=== PATIENT | female | born 1980 | race Caucasian/White ===

== ENCOUNTER 2017-07-11 06:17 | Emergency (ER) | payer SELFPAY ==
[2017-07-11 06:18] VITALS: BP 147/99; PULSE 86; RESP 20; TEMP 36.6; O2SAT 98; BMI 36.6
[2017-07-11 06:22] VITALS: O2SAT 97
--- NOTE | 2017-07-11 06:31 | RAD_ITS ---
STUDY: X-RAY CHEST REASON FOR EXAM: Female, 37 years old. Cough TECHNIQUE: Frontal and lateral views of the chest. COMPARISON: None. FINDINGS: The lungs are clear and expanded. There is no demonstrated pleural abnormality. Normal size heart. Normal mediastinum and joel. Normal visualized pulmonary arteries. Normal visualized aortic arch and descending thoracic aorta. Normal visualized thoracic spine. Normal visualized ribs, clavicles, and shoulders. There is no demonstrated abnormality of the visualized soft tissue structures of the upper abdomen. RAD/Chest PA and Lateral IMPRESSION: Normal x-ray examination of the chest. Electronically Signed: Valentina Sosa MD at 6:54 EST Tel , Service support ,
--- NOTE | 2017-07-11 06:32 | ED.VISSUMM ---
- ER Visit Summary Date of Service: 07/11/17 Chief Complaint: Cough History of Present Illness: The patient is a 37 F with cough occasionally productive of green/yellow sputum for about 1 week, has had hot/cold chills off and on, but not daily, coughing so hard that this morning she had one bout of posttussive emesis but otherwise no GI symptoms, ears have been sore, and she has been wheezing. She has a history of asthma. States she has had pneumonia in the past as well. Feels like she is not getting better. Has an inhaler that is and does not feel like it is working for her at home. Otherwise, her past medical history includes Crohn's but she is controlled with her diet and states that it is stable at this time without medications. Physical Examination: Afebrile, vital signs are normal with pulse ox 98% on room air. She is in no acute distress. Lungs are wheezy throughout all allen, she is conversive in full sentences. Heart is regular without tachycardia or murmur. Abdomen benign. No pedal edema or calf tenderness. TMs and EACs are normal bilaterally. Neck is supple with no lymphadenopathy. Test Results: Chest x-ray unremarkable. No pneumonia. Emergency Department Course and Treatment: Patient opted for Kenalog versus 1 week of prednisone, so she was given 40 mg IM, in addition to several nebulizer treatments and an injection of Toradol. She felt much improved on reevaluation. No antibiotics indicated at this time for what is likely a viral illness, I do not feel that we need to test for influenza since she would likely already be better by now, and she is certainly out of the window and not a candidate for antiviral treatment. Advised to follow-up with her doctor if she is not improving after another 5-7 days and she is comfortable with that plan. Treatment Plan: Prescribed albuterol MDI and Tesrenettaon Martín Disposition: Discharge home Impression: Acute asthmatic bronchitis This note was generated with [employer] dictation software. It may contain incorrect words, spelling, and punctuation that were not noted in review of the chart prior to signing ED Disposition - Plan for ED Patient: Disposition: Home or Assisted Living Chief Complaint: Cough Instructions: ED Bronchitis Asthmatic Prescriptions: Albuterol Inhaler [Ventolin Hfa] 1 - 2 puff INHALATION Q4H PRN PRN #1 inhaler PRN Reason: Wheezing Benzonatate [Tessalon Perle] 200 mg PO TID PRN PRN #20 cap PRN Reason: Cough Referrals: Adrianne Longoria [NON-STAFF] - 1 Week if not improving
[2017-07-11 06:45] VITALS: PULSE 84; RESP 18
[2017-07-11] MEDS: Ipratropium/Albuterol Sulfate 3 ML AMPUL.NEB INHALATION (06:45)
[2017-07-11] MEDS: Albuterol 2.5 MG/3 ML VIAL.NEB. INHALATION (06:45)
[2017-07-11] MEDS: Ketorolac 60 MG/2 ML Vial IM (06:52)
[2017-07-11] MEDS: Triamcinolone Acetonide 40 MG/ML Vial IM (06:54)
[2017-07-11 07:07] VITALS: BP 145/85; PULSE 87; RESP 17; O2SAT 98
== END 2017-07-11 07:08 | disposition home or self-care (01) ==
PROVIDERS: Emergency Provider Emergency Medicine
DX: J45.901 Unspecified asthma with (acute) exacerbation (principal); E66.9 Obesity, unspecified; Z72.0 Tobacco use
CPT/HCPCS: 71046; 94640; 96372; 99282

== ENCOUNTER 2022-05-05 09:58 | Emergency (ER) | payer SELFPAY ==
[2022-05-05 09:59] VITALS: BP 177/111; PULSE 88; RESP 16; TEMP 36.6; O2SAT 99; BMI 30.7
--- NOTE | 2022-05-05 11:38 | CT_ITS ---
EXAM: CT HEAD WITHOUT INTRAVENOUS CONTRAST CLINICAL INDICATION: Headache TECHNIQUE: Multiple axial images were obtained of the head without intravenous contrast. This CT exam was performed using one or more of the following dose reduction techniques: automated exposure control, adjustment of the mA and/or kV according to patient size, and/or use of iterative reconstruction technique. This report was created using [employer] report [employer] technology. COMPARISON: None. FINDINGS: BRAIN AND EXTRA-AXIAL SPACES: Normal. No intra- or extra-axial hemorrhage. No evidence of acute infarct. No intracranial mass or mass effect. There is preservation of the swanson/white matter interface. Posterior fossa structures are unremarkable. Ventricles are appropriate for age. No hydrocephalus. Basal cisterns are patent. BONES/JOINTS: Normal. No discrete lytic or blastic abnormalities. SINUSES: Unremarkable as visualized. No acute sinusitis. MASTOID AIR CELLS: Normal. Clear. ORBITS: Visualized globes, extraocular muscles, optic nerves and retrobulbar fat appear unremarkable. CT/Brain/Head without Contrast IMPRESSION: Normal CT brain without intravenous contrast. Electronically Signed: Herbert Morrison MD at 12:56 EST ,
--- NOTE | 2022-05-05 11:39 | EX.ED.DYSGE1 ---
HPI History of Present Illness Chief Complaint: General Illness Narrative Narrative: 42-year-old female presenting with headache for a week. She states that at first she had low-grade fevers and congestion and this is resolved for the most part but she sounds a worsening headache. She denies any trauma. She not on any blood thinners. No history of migraines. She does not describe an acute onset headache. She is mildly lightheaded. She has photophobia and phonophobia. PFSH PFS Medical History GERD (gastroesophageal reflux disease) Home Medications omeprazole 20 mg capsule,delayed release 20 mg PO DAILY 05/05/22 [History Last Taken Unknown] Allergy/AdvReac Type Severity Reaction Status Date / Time Penicillins [PCN] Allergy Other Verified 05/05/22 10:01 Sulfa (Sulfonamide Allergy Other Verified 05/05/22 10:01 Antibiotics) azithromycin [From Zithromax] AdvReac Other Verified 05/05/22 10:01 cephalexin monohydrate AdvReac Other Verified 05/05/22 10:01 [From Keflex] codeine AdvReac Other Verified 05/05/22 10:01 Social History Smoking Status: Current every day smoker tobacco type: cigarettes ROS ROS ED Constitutional Constitutional ED: Reports chills and fever(s) Eyes Eyes: Denies change in vision or diplopia ENT ENT ED: Denies rhinorrhea or sore throat Cardiovascular Cardiovascular: Denies chest pain Respiratory/Chest Respiratory/Chest: Denies cough or dyspnea Gastrointestinal Gastrointestinal: Denies abdominal pain Genitourinary Genitourinary ED: Denies dysuria or hematuria Musculoskeletal Musculoskeletal: Denies arthralgias or back pain Neurologic Neurologic: Reports headache(s); Denies paresthesias Psychiatric Psychiatric: Denies anxiety or depression EXAM Physical Exam Const Vital Signs: 05/05/22 09:59 Temperature 97.9 F Temperature Source Temporal Pulse Rate 88 Respiratory Rate 16 Blood Pressure 177/111 H Blood Pressure Mean 133 Pulse Ox 99 Oxygen Delivery Method Room Air Positive well nourished General Appearance ED: NAD; Negative for pallor HEENT Reports moist mucous membranes Eyes PERRL and EOMs intact bilaterally Neck no lymphadenopathy Chest Wall inspection of chest normal and palpation of chest normal Resp normal respiratory effort and clear to auscultation bilaterally Cardio regular rate and regular rhythm GI normal to inspection, nondistended, normoactive bowel sounds Extremity normal to inspection Neuro oriented x3 and CN's II-XII intact bilaterally Sensorium / Orientation: alert Psych mental status grossly normal Mood & Affect: Negative for depressed or anxious Skin no rashes or lesions noted and no wounds General Skin Exam: Negative for jaundice or pallor MDM MDM MDM Narrative Medical decision making narrative: Patient with headache for a week. She has no meningeal signs. She does not describe an acute onset headache. Initially started with viral symptoms. Her congestion has resolved however she still planes of headache. Patient treated with Reglan, Benadryl. CT of the brain was negative. Patient reevaluated states her headache is now 1 or 2 on the pain scale. She is given a dose of Toradol. She feels well enough to go home at this point. She is discharged home in stable condition. Impression: 1. Headache 2. Photophobia Lab Data Attestation: I reviewed the patient's lab results. Radiography Diagnostic Testing: Clinical Impression(s) from Imaging Studies Brain CT 05/05/22 11:38 IMPRESSION: Normal CT brain without intravenous contrast. Electronically Signed: Herbert Morrison MD at 12:56 EST , Discharge Plan Triage Chief Complaint: General Illness ED Provider: Jalen Apodaca Dx/Rx/DC Orders Prescriptions: No Action omeprazole [Prilosec] 20 mg Capsule,Delayed Release(Dr/Ec) 20 mg PO DAILY Primary Care Provider: Care Physician,No Primary Referrals: Care Physician,No Primary [Primary Care Provider] -
[2022-05-05] MEDS: 0.9% Normal Saline 1,000 ML 999 ML IV (12:10)
[2022-05-05] MEDS: DiphenhydrAMINE 50 MG/ML Syringe 25 MG IV (12:10)
[2022-05-05] MEDS: Metoclopramide 10 MG/2 ML Vial IV (12:10)
--- NOTE | 2022-05-05 13:36 | CM.ED ---
Social Work Consult: No primary care physician/no insurance Referral source: Self referral Met with patient and patient spouse, Sang in room. Introduced self and social scientist role. Patient agreeable to speak with this social scientist and provided verbal permission for this social scientist to speak openly with Sang present. This social scientist broached topic of medical insurance coverage for patient. Patient reports to not qualify for Medicaid due to income being to high. Patient reports to not have any insurance through employer. This social scientist inquired about community needs for patient. Patient reports to have housing, transportation, and food in the home. This social scientist inquired if patient is aware of [facility] in [place]. Patient reports to be aware of the free clinic. This social scientist encouraged patient to inquire about getting established with the [facility] for medical care as patient reports to have difficulty paying medical bills. Patient states I need to go get set up in regards to the [facility]. Patient declines further information about the free clinic, I already am aware of where it is. Patient declines any other community resources and reports to have needed supports in the community. No further services requested or indicated. Loan DEMPSEY, [place]
[2022-05-05] MEDS: Ketorolac 15 MG/ML Vial IV (13:56)
[2022-05-05 14:00] VITALS: BP 118/78; PULSE 78; RESP 16; TEMP 36.6; O2SAT 100
== END 2022-05-05 14:06 | disposition home or self-care (01) ==
PROVIDERS: Emergency Provider Student in an Organized Health Care Education/Training Program; Visit Provider Student in an Organized Health Care Education/Training Program
DX: R51.9 Headache, unspecified (principal); F17.210 Nicotine dependence, cigarettes, uncomplicated; H53.149 Visual discomfort, unspecified
CPT/HCPCS: 70450; 96361; 96374; 96375; 99283; J7030; A4216

== ENCOUNTER 2023-05-04 07:48 | Emergency (ER) | payer MEDICAID, SELFPAY ==
[2023-05-04 07:49] VITALS: BP 176/102; PULSE 90; RESP 18; TEMP 37.2; O2SAT 99; BMI 31.4
--- NOTE | 2023-05-04 08:10 | ED.VIS.DENTA ---
HPI History of Present Illness Chief Complaint: Dental Informant: patient Onset/Context/Timing Onset: Weeks (1) Context: Gradual Onset Timing: Continuous Quality: Aching Location: Right lower molar area Worsened by: Opening her jaw and eating Relieved by: - (Nothing) Associated Symptoms Assocated Symptom - Dental: Negative for fever, jaw swelling, face swelling, cold sensitivity or hot sensitivity Narrative Narrative: Patient presents with right lower dental pain that has been getting progressively worse over the past week. Patient states she has had oral surgeries in the past and since that time, she gets occasional abscesses in her jaw. Patient states this feels like she is developing another abscess in her jaw. Patient describes her pain as aching. Patient states it is worse when she opens her jaw and when she eats. Patient states nothing seems to help her pain. Patient denies any fevers or chills. Patient denies any jaw or facial swelling. Patient denies any hot or cold sensitivity. [facility] Medical History (Updated 05/04/23 @ 08:[address] Mervin Son DO) GERD (gastroesophageal reflux disease) Home Medications omeprazole 20 mg capsule,delayed release 20 mg PO DAILY 05/05/22 [History Last Taken Unknown] clindamycin HCl 300 mg capsule (Cleocin HCl) 300 mg PO Q6H #40 CAPSULES 05/04/23 [Rx Last Taken Unknown] Allergy/AdvReac Type Severity Reaction Status Date / Time Penicillins [PCN] Allergy Other Verified 05/04/23 07:49 Sulfa (Sulfonamide Allergy Other Verified 05/04/23 07:49 Antibiotics) azithromycin [From Zithromax] AdvReac Other Verified 05/04/23 07:49 cephalexin monohydrate AdvReac Other Verified 05/04/23 07:49 [From Keflex] codeine AdvReac Other Verified 05/04/23 07:49 Surgical History (Updated 05/04/23 @ 08:[address] Mervin Son DO) H/O: hysterectomy Hx of section Hx of oral surgery Social History Smoking Status: Current every day smoker tobacco type: cigarettes ROS ROS ED Constitutional Constitutional ED: Denies chills or fever(s) Eyes Eyes: Denies blurry vision or change in vision ENT ENT ED: Reports ear pain right; Denies rhinorrhea or sore throat Cardiovascular Cardiovascular: Denies chest pain or palpitations Respiratory/Chest Respiratory/Chest: Denies cough or dyspnea Gastrointestinal Gastrointestinal: Reports nausea; Denies vomiting Genitourinary Genitourinary ED: Denies dysuria or hematuria Musculoskeletal Musculoskeletal: Reports back pain and neck pain Integumentary Denies abscess or rash Neurologic Neurologic: Reports headache(s); Denies weakness Allergic/Immunologic Allergic/Immunologic ED: Denies mouth swelling or urticaria EXAM Physical Exam Const Vital Signs: 05/04/23 07:49 Temperature 99 F Temperature Source Temporal Pulse Rate 90 Respiratory Rate 18 Blood Pressure 176/102 H Blood Pressure Mean 126 Pulse Ox 99 Oxygen Delivery Method Room Air Positive well nourished and well developed General Appearance ED: well developed and NAD HEENT HEENT Narrative: Oral mucosa is pink and moist. Oropharynx is clear. Airway is patent. There is no trismus noted. The bilateral lower premolars and molars have been extracted previously. There is some mild gingival edema of the right lower premolar molar area. There is no fluctuance. There is no discharge or drainage noted. Neck is supple. Trachea is midline. There is no JVD. There is some mild submandibular lymphadenopathy. Throat: posterior oropharynx normal Neck Neck Narrative: There is some mild right submandibular lymphadenopathy that is tender to palpation. General: tenderness; Negative for anterior neck swelling or submandibular swelling Neuro oriented x3, CN's II-XII intact bilaterally, moves all extremities, no focal motor deficits and no sensory deficits noted Sensorium / Orientation: alert Motor Exam: strength 5/5 throughout Psych mental status grossly normal MDM MDM MDM Narrative Medical decision making narrative: Smoking cessation was discussed. Patient was advised that there may be an infection in her right lower jaw. There is no definite abscess. There is no indication for incision and drainage. Patient was given a dose of clindamycin here. Patient was given a prescription for clindamycin. Patient was instructed to follow-up with her dentist in 5 to 7 days. Patient was also instructed to follow-up with her primary care physician in 5 to 7 days. Patient understood and was agreeable with plan. All questions were answered. Discharge Plan Triage Chief Complaint: Dental ED Provider: Mervin Son Dx/Rx/DC Orders Clinical Impression: Odontalgia Instructions: ED Dental Pain Prescriptions: New clindamycin HCl [Cleocin HCl] 300 mg capsule 300 mg PO Q6H Qty: 40 0RF No Action omeprazole [Prilosec] 20 mg Capsule,Delayed Release(Dr/Ec) 20 mg PO DAILY Primary Care Provider: Care Physician,No Primary Referrals: Leyla Barry MD [Med Staff - [employer]] - 5-7 Days Care Physician,No Primary [Primary Care Provider] - Dentist,Your [STAFF PHYSICIAN] - 5-7 Days Disposition Disposition: Home, Self Care Discharge Date/Time: 05/04/23 08:32
[2023-05-04] MEDS: Clindamycin HCl 150 MG Capsule 300 MG PO (08:28)
== END 2023-05-04 08:32 | disposition home or self-care (01) ==
LOC: ED 08:21
PROVIDERS: Emergency Provider Emergency Medicine; Visit Provider Emergency Medicine
DX: K08.89 Other specified disorders of teeth and supporting structures (principal); F17.210 Nicotine dependence, cigarettes, uncomplicated; R51.9 Headache, unspecified
CPT/HCPCS: 99283

== ENCOUNTER 2023-06-06 10:04 | Emergency (ER) | payer MEDICAID, SELFPAY ==
[2023-06-06 10:06] VITALS: BP 162/87; PULSE 89; RESP 14; TEMP 37.2; O2SAT 98; BMI 31.4
--- NOTE | 2023-06-06 10:30 | EX.ED.VIS.UR ---
HPI HPI - URI History of Present Illness Chief Complaint: Sore Throat Informant: patient Onset/Context/Timing Onset: Days Timing: Continuous Current Severity: Mild Maximum Severity: Mild Associated Symptoms Associated Symptoms: Positive for Nasal Congestion, Myalgias and Nonproductive cough Narrative Narrative: 43-year-old female history of Crohn's disease. States she has had cough nasal congestion for about a week. Never was tested for anything. Over the last several days developed a sore throat. Able to swallow. She has chronic diarrhea from Crohn's she denies any fever or vomiting. She is able to take in p.o. fluids. Prior similar symptoms: Yes Recent Illness/Hospitalization: No ROS ROS ED ROS Narrative Cough. Sore throat. Nasal congestion. Chronic diarrhea from Crohn's. Review of Systems ROS Unobtainable: Denies due to encephalopathy Constitutional Constitutional ED: Denies chills or fever(s) Eyes Eyes: Denies blurry vision ENT ENT ED: Reports sore throat; Denies ear pain Cardiovascular Cardiovascular: Denies chest pain or palpitations Respiratory/Chest Respiratory/Chest: Reports cough; Denies dyspnea or sputum Gastrointestinal Gastrointestinal: Reports diarrhea; Denies abdominal pain, nausea or vomiting Genitourinary Genitourinary ED: Denies dysuria or hematuria Musculoskeletal Musculoskeletal: Denies arthralgias or back pain Integumentary Denies abscess or Abrasions Neurologic Neurologic: Denies headache(s) Psychiatric Psychiatric: Denies anxiety Endocrine Endocrinology: Denies cold intolerance Hematologic/Lymphatic Hematologic/Lymphatic: Denies easy bleeding, easy bruising or lymphadenopathy Allergic/Immunologic Allergic/Immunologic ED: Denies mouth swelling, tongue swelling or urticaria PFSH [facility] Medical History GERD (gastroesophageal reflux disease) Home Medications omeprazole 20 mg capsule,delayed release 20 mg PO DAILY 05/05/22 [History Last Taken Unknown] clindamycin HCl 300 mg capsule (Cleocin HCl) 300 mg PO Q6H #40 CAPSULES 05/04/23 [Rx Last Taken Unknown] azithromycin 250 mg tablet (Zithromax Z-Zeferino) 250 mg PO DAILY 4 days #4 tabs 06/06/23 [Rx Last Taken Unknown] Allergy/AdvReac Type Severity Reaction Status Date / Time Penicillins [PCN] Allergy Other Verified 06/06/23 10:22 Sulfa (Sulfonamide Allergy Other Verified 06/06/23 10:22 Antibiotics) azithromycin [From Zithromax] AdvReac Other Verified 06/06/23 10:22 cephalexin monohydrate AdvReac Other Verified 06/06/23 10:22 [From Keflex] codeine AdvReac Other Verified 06/06/23 10:22 Surgical History H/O: hysterectomy Hx of section Hx of oral surgery Social History Smoking Status: Current every day smoker tobacco type: cigarettes EXAM Physical Exam Narrative Exam Narrative: 3-year-old female no acute distress. Vital signs stable afebrile. Pulse ox 90% on room air no signs hypoxia. H EENT exam both TMs are slightly red. Posterior pharynx erythematous no exudate. No trouble swallowing or breathing. No stridor or drooling. No peritonsillar abscess. Tonsils are not significantly enlarged or touching. Moist mucous members. Neck anterior lymphadenopathy. No posterior lymphadenopathy. No meningismus. Trachea midline. Lungs clear to auscultation bilaterally. Dry cough. Heart regular rhythm no murmur rate about 90. Chest wall and ribs nontender. Abdomen soft nontender. Back nontender. Moving all 4 extremities. Nontender no edema. Neurologically she is awake and alert no focal motor deficits. Const Vital Signs: 06/06/23 10:06 Temperature 99 F Temperature Source Temporal Pulse Rate 89 Respiratory Rate 14 Blood Pressure 162/87 H Blood Pressure Mean 112 Pulse Ox 98 Oxygen Delivery Method Room Air Positive well nourished and well developed; Negative for obese, cachectic or contractures General Appearance ED: well developed and NAD; Negative for cachectic, contractures, cyanotic, diaphoretic or pallor Nutritional Appearance: Negative for cachectic or obese HEENT Reports moist mucous membranes; Denies dry mucous membranes normocephalic and atraumatic; Negative for scalp tenderness Face and Sinus: Negative for sinus tenderness Mouth ED: No dry mucous membranes Mouth: No dry mucous membranes Teeth and Gingiva: Negative for caries Throat: posterior oropharynx abnormal Positive for erythema; Negative for exudates, laceration, foreign body or other; Negative for posterior oropharynx normal Eyes PERRL and EOMs intact bilaterally General Eye ED: Negative for pale conjunctiva or scleral icterus Neck No no lymphadenopathy, supple, no meningeal signs and no JVD General: lymphadenopathy Resp normal respiratory effort and clear to auscultation bilaterally Effort and Inspection: Negative for retractions Auscultation: Negative for rales, rhonchi or wheezes Cardio S1 normal heart sound, S2 normal heart sound and no murmurs Rate: regular rate Rhythm: regular rhythm GI non-tender, non-distended and no masses Inspection: Negative for abdominal distention Auscultation: normoactive bowel sounds Palpation: soft; Negative for tender or guarding Back/Spine no CVA tenderness and normal ROM General Back: Negative for CVA tenderness Cervical Spine: Negative for cervical spine tenderness Thoracic Spine / Upper Back: Negative for thoracic spinal tenderness Lumbar Spine / Lower Back: Negative for lumbar spinal tenderness Sacrum: Negative for tenderness Extremity normal to inspection and full ROM General Extremety ED: Negative for cyanosis, tenderness or other findings General Extremity: Negative for cyanosis or other findings Neuro oriented x3 and CN's II-XII intact bilaterally Sensorium / Orientation: alert, oriented to person, oriented to place and oriented to time; Negative for orientation impaired, lethargic, stuporous or other Motor Exam: strength 5/5 throughout Psych mental status grossly normal Appearance: Negative for other Attitude: No agitated Mood & Affect: Negative for depressed, anxious or tearful Skin General Skin Exam: Negative for jaundice or pallor Lesions: no lesions Rashes: no rashes Trauma: Negative for abrasion or laceration MDM MDM MDM Narrative Medical decision making narrative: 43-year-old female with URI symptoms and sore throat. Rapid strep and COVID and flu will be obtained. She does not need a chest x-ray. She is not dehydrated. She does not need blood work or IV fluids. Patient has cervical lymphadenopathy but no axillary or inguinal lymphadenopathy. Exam no change when I reevaluated her throat there is a small amount of exudate on the right tonsil. With the lymphadenopathy and that I would treat this. I will treat the patient with Zithromax Z-ZEFERINO first dose given here and then to 50 a day for days 2 through 5. For possible strep throat. Versus viral syndrome. Warm salt water gargling. Tylenol Motrin. Rest. Follow-up if not improving. Patient is comfortable with the plan. History & Record Review Discussion w/independent historian: Patient Additional record(s) reviewed:: Prior inpatient record, Prior outpatient record, Prior ED visit and Prior labs Lab Data Attestation: I reviewed the patient's lab results. Lab results narrative: COVID, flu, RSV negative. Rapid strep negative. Discharge Plan Triage Chief Complaint: Sore Throat ED Provider: Arslan Avitia Dx/Rx/DC Orders Clinical Impression: Acute tonsillitis Instructions: ED Pharyngitis, Report Pending Prescriptions: New azithromycin [Zithromax Z-Zeferino] 250 mg tablet 250 mg PO DAILY 4 Days Qty: 4 0RF Rx Instructions: start on day 2 of therapy No Action omeprazole [Prilosec] 20 mg Capsule,Delayed Release(Dr/Ec) 20 mg PO DAILY clindamycin HCl [Cleocin HCl] 300 mg capsule 300 mg PO Q6H Qty: 40 0RF Primary Care Provider: Adrianne Longoria Referrals: Adrianne Longoria [Primary Care Provider] - 1 Week if not improving Care Physician,No Primary [Non-Staff] - Activity Restrictions/Additional Instructions: COVID, RSV and flu were negative. The strep was negative but the culture is pending. With your swollen lymph nodes and the exudate on your tonsil we will treat with an antibiotic. Zithromax 1 pill a day for the next 4 days starting tomorrow. Motrin and Tylenol for pain. Warm salt water gargling. Follow-up if not improving or return if a lot worse. Disposition Disposition: Home, Self Care
[2023-06-06] MEDS: Azithromycin 250 MG Tablet 500 MG PO (13:27)
[2023-06-06 13:28] VITALS: RESP 16
== END 2023-06-06 13:29 | disposition home or self-care (01) ==
PROVIDERS: Emergency Provider Emergency Medicine; Visit Provider Emergency Medicine
DX: J03.90 Acute tonsillitis, unspecified (principal); K50.90 Crohn's disease, unspecified, without complications; F17.210 Nicotine dependence, cigarettes, uncomplicated; R59.0 Localized enlarged lymph nodes
CPT/HCPCS: 87631; 87651; 99282

== ENCOUNTER 2024-07-19 11:34 | Emergency (ER) | payer MEDICAID, SELFPAY ==
[2024-07-19 11:34] VITALS: BP 182/97; PULSE 91; RESP 18; TEMP 36.6; O2SAT 100; BMI 31.1
--- NOTE | 2024-07-19 12:06 | EKG12_ITS ---
Test Reason : CP Blood Pressure : */* mmHG Vent. Rate : 83 BPM Atrial Rate : 83 BPM P-R Int : 148 ms QRS Dur : 80 ms QT Int : 390 ms P-R-T Axes : 45 37 28 degrees QTcB Int : 458 ms Normal sinus rhythm Normal ECG Confirmed by Karel Vázquez ([id number]), web content editor AN FERNANDO ([id number]) on 07/22/2024 9:51:31 AM Referred By: Severiano Burnette Confirmed By: Karel Vázquez
--- NOTE | 2024-07-19 12:07 | ED.VIS.CHEST ---
HPI History of Present Illness Chief Complaint: Chest Pain Informant: patient Narrative Narrative: 44-year-old female presenting with chest discomfort that has been episodic for 5 or 10 minutes at a time for weeks, randomly. Today it is been there for 1.5 hours and not gone away is the first time it is numbness. No associated dyspnea. Nonpleuritic. No sharp tearing sensations. Gradual in onset not suddenly severe. She states it does not hurt to swallow but it feels like when you swallow something a hard and it bothers your esophagus. She states it is centered in the middle of her chest and she feels it a little in her right lateral and posterior chest. She states also this morning she feels roaring or wooshing in both of her ears and she is feeling dizzy like an uncomfortable sensation that she is having difficulty describing but it gets worse when she moves her head and it improves when she remains still. No vomiting with this. No focal neurologic deficits. Off balance when she walks. No recent URI, hospitalization, or surgery. No recent head injury. No history of DVT or PE no recent long travel no pain or swelling in either of her legs. States he has a history of Crohn's disease but has not needed any medications for 10 or 20 years. However she did start having diarrhea this morning. No blood. [facility] Medical History (Updated 07/19/24 @ 15:[address] Severiano Burnette MD) Crohn's disease GERD (gastroesophageal reflux disease) Home Medications ?Medication ?Instructions ?Recorded ?Last Taken ?Type omeprazole 20 mg capsule,delayed 20 mg PO DAILY 05/05/22 Unknown History release clindamycin HCl 300 mg capsule 300 mg PO Q6H #40 CAPSULES 05/04/23 Unknown Rx (Cleocin HCl) azithromycin 250 mg tablet 250 mg PO DAILY 4 days #4 tabs 06/06/23 Unknown Rx (Zithromax Z-Walter) dicyclomine 20 mg tablet 20 mg PO Q6H PRN PRN abdominal 07/19/24 Unknown Rx discomfort #20 tabs Allergy/AdvReac Type Severity Reaction Status Date / Time Penicillins (PCN) Allergy Other Verified 07/19/24 11:34 Sulfa (Sulfonamide Allergy Other Verified 07/19/24 11:34 Antibiotics) azithromycin (From Zithromax) AdvReac Other Verified 07/19/24 11:34 cephalexin monohydrate (From AdvReac Other Verified 07/19/24 11:34 Keflex) codeine AdvReac Other Verified 07/19/24 11:34 Surgical History Hx of oral surgery Hx of section H/O: hysterectomy Social History Smoking Status: Current every day smoker tobacco type: cigarettes ROS ROS ED Constitutional Constitutional ED: Denies chills or fever(s) Eyes Eyes: Denies blurry vision, change in vision or diplopia ENT ENT ED: Reports disequillibrium and dizziness; Denies rhinorrhea or sore throat Cardiovascular Cardiovascular: Reports as per HPI and chest pain; Denies palpitations Respiratory/Chest Respiratory/Chest: Denies cough or dyspnea Gastrointestinal Gastrointestinal: Reports diarrhea; Denies abdominal pain, melena, nausea or vomiting Genitourinary Genitourinary ED: Denies dysuria or hematuria Musculoskeletal Musculoskeletal: Denies back pain or neck pain Integumentary Denies abscess or rash Neurologic Neurologic: Reports abnormal gait, disequilibrium and dizziness; Denies abnormal speech, headache(s), paresthesias or weakness Psychiatric Psychiatric: Denies suicidal thoughts EXAM Physical Exam Const Vital Signs: 07/19/24 11:34 07/19/24 12:23 07/19/24 13:21 Temperature 98 F Temperature Source Temporal Pulse Rate 91 86 Respiratory Rate 18 18 Blood Pressure 182/97 H 139/94 H Blood Pressure Mean 125 109 Pulse Ox 100 98 98 Oxygen Delivery Method Room Air Room Air Room Air 07/19/24 13:35 Temperature Temperature Source Pulse Rate 76 Respiratory Rate 18 Blood Pressure 119/76 Blood Pressure Mean 90 Pulse Ox 97 Oxygen Delivery Method Room Air Positive well nourished and well developed General Appearance ED: well developed and NAD HEENT Reports TM's clear and moist mucous membranes normocephalic and atraumatic Tympanic Membrane ED: Yes TM's clear Eyes PERRL and EOMs intact bilaterally Eyes Narrative: Some horizontal nystagmus with rapid component to the left, no direction changing nystagmus. Otherwise normal eye exam. Neck full ROM and supple Resp normal respiratory effort and clear to auscultation bilaterally Cardio regular rate, regular rhythm and no murmurs GI non-distended GI Narrative: Epigastric tenderness otherwise benign abdomen. No pulsatile mass no guarding or rebound. Auscultation: normoactive bowel sounds Palpation: soft Back/Spine no CVA tenderness General Back: other FROM Extremity normal to inspection Extremity Narrative: No calf tenderness or palpable cords. General Extremety ED: Negative for edema, pulses abnormal or tenderness General Extremity: Negative for edema or pulses abnormal Neuro oriented x3, CN's II-XII intact bilaterally and no sensory deficits noted Neuro Narrative: Negative skew test. Abnormal jolt test, with catch-up saccade present. Sensorium / Orientation: awake and alert Motor Exam: strength 5/5 throughout Psych Mood & Affect: anxious Skin no rashes or lesions noted and no wounds Heart Score History: Slightly/Non-Suspicious ECG: Normal Age: </= 45 years Risk Factors: 1 or 2 Risk Factors (Smoker) Troponin: </= Normal Limit Score: 1 MDM MDM MDM Narrative Medical decision making narrative: Her hints exam is consistent with peripheral vertigo, as are her symptoms. I think this is unrelated to her chest discomfort which does not sound cardiac in context of a normal EKG and her age and overall health. While performing a workup including that to rule out acute coronary syndrome she was amenable to trying a GI cocktail for discomfort in addition to some meclizine for her vertigo. Afterwards, the vertigo was better but her chest is still bothering her and she states she is having a lot more diarrhea now while waiting for labs to return. Initially, troponin negative, other labs are only remarkable for a mild nonspecific leukocytosis at 11.5. Chest x-ray 1 view on my interpretation negative for pleural effusion, pneumonia, widened mediastinum radiology in agreement. Her EKG is normal. We are going to do a 2-hour troponin, and in the meantime we will give her dicyclomine, Toradol to see if those help her symptoms, and I will add LFTs and a lipase to rule out pancreatitis. These medicines really helped, she feels a lot better. The labs returned unremarkable as well as her second troponin. On reexamination her vital signs are normal, I was initially concerned about her blood pressure 182/97, possibly due to pain, as now she is 119/76. She does not have a local PCP or GI, unknown if these symptoms are related to an acute illness or her Crohn's or both, but if it does not get better, then she needs to follow-up and she was also given a PCP to follow-up with. Dr. Greco next on the unassigned list. Lab Data Attestation: I reviewed the patient's lab results. Labs: Laboratory Results - last 24 hr 07/19/24 07/19/24 12:10 14:40 WBC 11.5 H RBC 5.31 Hgb 15.7 H Hct 45.6 MCV 85.9 MCH 29.6 MCHC 34.4 RDW Std Deviation 38.6 RDW Coeff of Carey 12.4 Plt Count 267 MPV 9.4 Immature Gran % (Auto) 0.500 Neut % (Auto) 77.7 H Lymph % (Auto) 17.2 L Stearns % (Auto) 3.6 Eos % (Auto) 0.3 Baso % (Auto) 0.7 Absolute Neuts (auto) 8.9 H Absolute Lymphs (auto) 1.98 Nucleated RBC % 0 Sodium 135 L Potassium 4.0 Chloride 104 Carbon Dioxide 24.0 Anion Gap 7 BUN 11 Creatinine 0.64 Estim Creat Clear Calc 106.93 Est GFR (MDRD) Af Amer 130 Est GFR (MDRD) Non-Af 108 BUN/Creatinine Ratio 17.3 Glucose 243 H Calcium 9.2 Total Bilirubin 1.00 Direct Bilirubin 0.24 AST 33 ALT 45 Alkaline Phosphatase 84 Troponin I High Sens < 3 L < 3 L Total Protein 7.7 Albumin 3.8 Globulin 3.9 Lipase 19 L Radiography Diagnostic Testing: Clinical Impression(s) from Imaging Studies Chest X-Ray 07/19/24 12:30 IMPRESSION: NEGATIVE CHEST. Reading Location: [place] [address] Rhythm Strip Rhythm Strip: Sinus Rhythm Rate: 83 Ectopy: None EKG Initial EKG: Attestation: I personally reviewed and interpreted this EKG as follows: Interpretation: Sinus Rhythm and No Acute Injury Pattern Comments: Nml axis & intervals; nml EKG Discharge Plan Triage Chief Complaint: Chest Pain ED Provider: Severiano Burnette Dx/Rx/DC Orders Clinical Impression: Chest pain, unspecified, Acute epigastric pain, Acute diarrhea, History of Crohn's disease, Episode of hypertension Instructions: ED Diarrhea, Unknown Cause Prescriptions: New dicyclomine 20 mg tablet 20 mg PO Q6H PRN PRN (Reason: abdominal discomfort) Qty: 20 0RF No Action omeprazole [Prilosec] 20 mg Capsule,Delayed Release(Dr/Ec) 20 mg PO DAILY clindamycin HCl [Cleocin HCl] 300 mg capsule 300 mg PO Q6H Qty: 40 0RF azithromycin [Zithromax Z-Walter] 250 mg tablet 250 mg PO DAILY 4 Days Qty: 4 0RF Rx Instructions: start on day 2 of therapy Primary Care Provider: Care Physician,No Primary Referrals: Tisha Greco MD [Med Staff - Highway Maintainer] - (for primary care) Hussein Osborne DO [Med Staff - Active Staff] - (for GI) Print Language: Vietnamese Disposition Disposition: Home, Self Care
[2024-07-19 12:23] VITALS: O2SAT 98
[2024-07-19] MEDS: Meclizine HCl 25 MG Tablet PO (12:28)
[2024-07-19] MEDS: Lidocaine 2% Viscous15 ML UDC 15 ML PO (12:29)
[2024-07-19] MEDS: Mag Hydrox/Al Hydrox/Simeth 30 ML UDC PO (12:29)
--- NOTE | 2024-07-19 12:30 | RAD_ITS ---
PROCEDURE: CHEST 1 VIEW (PORTABLE) REASON FOR EXAM: Right-sided rib pain and sternal pain. TECHNIQUE: Frontal view of the chest. COMPARISON: Yesterday FINDINGS: EKG electrodes are seen. The heart size is normal. The lungs are clear. RAD/Chest 1 View (Portable) IMPRESSION: NEGATIVE CHEST. Reading Location: [place] [address]
[2024-07-19 12:34] LABS: Absolute Lymphocyte Count 1.98 X10^3/uL (0.83-4.51); Absolute Neutrophil Count 8.9 X10^3/uL (2.0-7.7); Basophil# 0.08 X10^3/uL; Basophil% 0.7 % (0-1); Eosinophil# 0.04 X10^3/uL; Eosinophils% 0.3 % (0-5); Hematocrit 45.6 % (37-47); Hemoglobin 15.7 g/dL (12.0-15.0); Lymphocyte # 1.98 X10^3/ul (0.83-4.51); Lymphocyte % 17.2 % (19-41); Mean Corp Hgb Conc 34.4 g/dL (32-36); Mean Corpuscular Hgb 29.6 pg (27.0-32.0); Mean Corpuscular Volume 85.9 fL (81-99); Mean Platelet Vol. 9.4 fl (6.2-12.0); Monocyte# 0.41 X10^3/uL; Monocyte% 3.6 % (0-10); NRBC Flagged by Analyzer 0 % (0-5); Neutrophil # 8.92 X10^3/uL (2.7-7.7); Neutrophil % 77.7 % (47-70); Platelet Count 267 K/mm3 (150-450); RBC Distribution Width CV 12.4 % (11.6-14.6); RBC Distribution Width SD 38.6 fl (35.1-43.9); Red Blood Count 5.31 M/mm3 (4.2-5.4); White Blood Count 11.5 K/mm3 (4.4-11.0)
[2024-07-19 12:50] LABS: Anion Gap 7 (5-15); BUN 11 mg/dL (7-18); BUN/Creat Ratio 17.3 RATIO (10-20); Calcium,Total 9.2 mg/dL (8.5-10.1); Chloride 104 mmol/L (98-107); Creatinine, Serum 0.64 mg/dL (0.55-1.02); EST Glomerular Filtration Rate 108 mL/min (>60); Est Glom Filt Rate - Afr Amer 130 mL/min (>60); Estimated Creatinine Clearance 106.93 ml/min; Glucose 243 mg/dL (74-106); Sodium Level 135 mmol/L (136-145); Troponin-I HS (w/2H Reflex) < 3 pg/mL (3.0-54.0)
[2024-07-19 13:21] VITALS: BP 139/94; PULSE 86; RESP 18; O2SAT 98
[2024-07-19] MEDS: Ketorolac 30 MG/ML Syringe IV (13:29)
[2024-07-19] MEDS: Dicyclomine 10 MG Capsule 20 MG PO (13:29)
[2024-07-19 13:35] VITALS: BP 119/76; PULSE 76; RESP 18; O2SAT 97
[2024-07-19 14:21] LABS: AST(SGOT) 33 U/L (15-37); Alanine Aminotransfer ALT/SGPT 45 U/L (13-56); Albumin, Serum 3.8 g/dL (3.2-5.0); Alkaline Phosphatase 84 U/L (45-117); Bilirubin, Direct 0.24 mg/dL (0.00-0.30); Globulin 3.9 g/dL (2.2-4.2); Lipase 19 U/L (73-393); Protein, Total 7.7 g/dL (6.4-8.2)
[2024-07-19 14:22] LABS: Reflex Troponin-HS? (from REC) Y
[2024-07-19 15:07] LABS: Troponin-I HS < 3 pg/mL (3.0-54.0)
[2024-07-19 15:36] VITALS: BP 130/80; PULSE 71; RESP 16; TEMP 36.9; O2SAT 97
== END 2024-07-19 15:37 | disposition home or self-care (01) ==
PROVIDERS: Emergency Provider Emergency Medicine; Referring Provider Emergency Medicine; Visit Provider Emergency Medicine
DX: R07.89 Other chest pain (principal); K50.90 Crohn's disease, unspecified, without complications; R19.7 Diarrhea, unspecified; R10.13 Epigastric pain; R42 Dizziness and giddiness; I10 Essential (primary) hypertension; K21.9 Gastro-esophageal reflux disease without esophagitis; F17.210 Nicotine dependence, cigarettes, uncomplicated; Z88.2 Allergy status to sulfonamides; Z88.0 Allergy status to penicillin; Z88.1 Allergy status to other antibiotic agents
CPT/HCPCS: 71045; 80048; 80076; 83690; 84484; 85025; 93005; 96374; 99285; A4216

== ENCOUNTER 2024-08-14 09:03 | Emergency (ER) | payer MEDICAID, SELFPAY ==
[2024-08-14 09:04] VITALS: BP 167/98; PULSE 94; RESP 18; TEMP 37.1; O2SAT 100; BMI 24.0
--- NOTE | 2024-08-14 09:14 | EKG12_ITS ---
Test Reason : Blood Pressure : */* mmHG Vent. Rate : 78 BPM Atrial Rate : 78 BPM P-R Int : 148 ms QRS Dur : 82 ms QT Int : 386 ms P-R-T Axes : 46 26 9 degrees QTcB Int : 440 ms Normal sinus rhythm Normal ECG When compared with ECG of 19-Jul-2024 11:44, No significant change was found Confirmed by ROHAN ORDONEZ, AARON ([id number]), assistant film editor JAZMÍN DIXON ([id number]) on 08/19/2024 8:13:49 AM Referred By: BEATRICE Confirmed By: AARON MADRIGAL MD
--- NOTE | 2024-08-14 09:14 | CT_ITS ---
PROCEDURE: ABDOMEN/PELVIS W IV CONT ONLY 08/14/2024 REASON FOR EXAM: ABDOMINAL PAIN, HISTORY OF CROHN Diarrhea. TECHNIQUE: Abdomen CT without and with intravenous contrast. Coronal and Sagittal reconstruction series were provided. PATIENT PREPARATION: Per protocol ORAL CONTRAST TYPE: None. CONTRAST: Isovue-300 VOLUME: 100mL One or more dose reduction techniques were used (e.g., Automated exposure control, adjustment of the mA and/or kV according to patient size, use of iterative reconstruction technique. RADIATION DOSE SUMMARY: CTDlvol: 13 mGy DLP: 922.85 mGycm COMPARISON: None FINDINGS: Lung bases: Unremarkable. Liver: Diffuse fatty infiltration. Hepatomegaly. Gallbladder: Surgically absent. Spleen: Borderline splenomegaly. Pancreas: Normal size without evidence of mass surrounding inflammation or ductal dilation. Adrenals: Unremarkable. Kidneys: Normal renal sizes. No hydronephrosis. Bladder: Unremarkable. Reproductive Organs: Normal uterine size and contour. Ovaries are unremarkable. Bowel: No bowel obstruction. Appendix: The appendix is not identified. There is no inflammatory process identified in the right lower quadrant to suggest appendicitis. Lymph nodes: Unremarkable. Vasculature: The abdominal aorta and IVC are normal. Peritoneum / Retroperitoneum: Unremarkable Bones: Minimal anterior listhesis of L5 on S1 due to spondylolysis of the pars interarticularis of the L5 vertebrae. CT/Abdomen/Pelvis W IV Cont ONLY IMPRESSION: Hepatomegaly and diffuse fatty infiltration of the liver. Borderline splenomegaly. Minimal anterior listhesis of L5 on S1 due to spondylolysis of the pars interar ticularis of the L5 vertebrae. Reading Location: [facility]
[2024-08-14 09:34] LABS: Bacteria 0 SEEN /hpf (None Seen); Mucous, Urine 0 SEEN /hpf (<or=2+); White Blood Cells 0 SEEN /hpf (0-5)
[2024-08-14 09:37] LABS: Color, Urine Yellow (Yellow); Glucose, Dipstick 1000 mg/dl (Normal); Ketone-Dipstick Negative (Negative); Leukocyte Esterase-Dipstick Negative /ul (Negative); Nitrite-Dipstick Negative (Negative); Occult Blood-Urine Negative /ul (Negative); Protein-Dipstick 30 mg/dl (Negative); Specific Gravity, Urine 1.015 (1.002-1.030); Urine Bilirubin Dipstick Negative (Negative); Urine Clarity Sl. Cloudy (Clear); Urine Urobilinogen Normal (Normal); Urine pH 6.5 (5.0 - 8.0)
[2024-08-14 09:40] LABS: Absolute Lymphocyte Count 2.29 X10^3/uL (0.83-4.51); Absolute Neutrophil Count 7.4 X10^3/uL (2.0-7.7); Basophil# 0.08 X10^3/uL; Basophil% 0.8 % (0-1); Eosinophil# 0.04 X10^3/uL; Eosinophils% 0.4 % (0-5); Hematocrit 46.7 % (37-47); Hemoglobin 16.5 g/dL (12.0-15.0); Lymphocyte # 2.29 X10^3/ul (0.83-4.51); Lymphocyte % 22.5 % (19-41); Mean Corp Hgb Conc 35.3 g/dL (32-36); Mean Corpuscular Hgb 30.3 pg (27.0-32.0); Mean Corpuscular Volume 85.8 fL (81-99); Mean Platelet Vol. 9.4 fl (6.2-12.0); Monocyte# 0.35 X10^3/uL; Monocyte% 3.4 % (0-10); NRBC Flagged by Analyzer 0 % (0-5); Neutrophil # 7.36 X10^3/uL (2.7-7.7); Neutrophil % 72.3 % (47-70); Platelet Count 257 K/mm3 (150-450); RBC Distribution Width CV 12.1 % (11.6-14.6); RBC Distribution Width SD 37.7 fl (35.1-43.9); Red Blood Count 5.44 M/mm3 (4.2-5.4); White Blood Count 10.2 K/mm3 (4.4-11.0)
[2024-08-14] MEDS: 0.9% Normal Saline (1000mL) 1,000 ML 999 ML IV (09:42)
[2024-08-14] MEDS: Ondansetron 4 MG/2 ML Vial IV (09:42)
--- NOTE | 2024-08-14 09:44 | EX.ED.DYSGE1 ---
HPI History of Present Illness Chief Complaint: Abd Pain Narrative Narrative: Chief complaint and HPI: Right upper quadrant abdominal pain with nausea, diarrhea. 44-year-old female with past medical history of Crohn's disease not on any immunosuppressants and does not follow with GI presents for evaluation of right upper quadrant abdominal pain with nausea, diarrhea. Patient states she has not seen a GI physician or been on medication for her Crohn's disease in 20 years. She does not remember her last colonoscopy. She states that yesterday she developed right upper quadrant abdominal pain that wraps around to her back. She describes it as crampy as well as sharp. She denies any injury. Associated symptoms are nausea and nonbloody diarrhea. Patient states she has history of urolithiasis in the past however this is different. She has a history of a cholecystectomy. She denies any fever, chills, URI symptoms, cough, chest pain, shortness of breath, emesis, dysuria. Review of systems: See HPI Medications: As listed on the chart Allergies: As listed on the chart PFSH: Per chart Vital signs: As listed on the chart. Reviewed. Physical exam: Gen: A&O x3, NAD Head: Normocephalic, atraumatic Eyes: No sclera icterus, conjunctiva clear ENT: Moist mucous membranes Neck: Trachea midline, No JVD CV: RRR, no murmurs, no peripheral edema Resp: Lungs CTA BL, no w/r/c GI: Abd soft, non-distended, nontender, no r/r/g : No CVA tenderness Musc: Full ROM, no deformity Skin: Warm, dry Neuro: Alert, oriented, grossly intact, sensation intact Psych: Cooperative, appropriate mood and affect [facility] Medical History (Updated 08/14/24 @ 13:[address] Dre Kapadia, DO) Crohn's disease GERD (gastroesophageal reflux disease) Home Medications ?Medication ?Instructions ?Recorded ?Last Taken ?Type metformin 850 mg tablet 850 mg PO DAILY 30 days #30 tabs 08/14/24 Unknown Rx Allergy/AdvReac Type Severity Reaction Status Date / Time Penicillins (PCN) Allergy Other Verified 08/14/24 09:04 Sulfa (Sulfonamide Allergy Other Verified 08/14/24 09:04 Antibiotics) cephalexin monohydrate (From AdvReac Other Verified 08/14/24 09:04 Keflex) codeine AdvReac Other Verified 08/14/24 09:04 Surgical History Hx of oral surgery Hx of section H/O: hysterectomy Social History Smoking Status: Current every day smoker tobacco type: cigarettes EXAM Physical Exam Const Vital Signs: 08/14/24 09:04 08/14/24 12:27 08/14/24 12:40 Temperature 98.8 F Temperature Source Oral Pulse Rate 94 74 70 Respiratory Rate 18 18 Blood Pressure 167/98 H 110/76 155/87 H Blood Pressure Mean 121 88 104 Pulse Ox 100 98 98 Oxygen Delivery Method Room Air MDM MDM MDM Narrative Medical decision making narrative: 44-year-old female with past medical history of Crohn's disease not on any immunosuppressants and does not follow with GI presents for evaluation of right upper quadrant abdominal pain with nausea, diarrhea. Differential diagnosis includes but is not limited to viral illness, gastritis, GERD, pancreatitis, colitis, Crohn's flare, electrolyte abnormality, UTI, suspect less likely ACS but on the differential. NS bolus, Zofran, morphine ordered for symptoms. Patient declined morphine. Laboratory workup ordered including CT abdomen and pelvis. CBC without leukocytosis. Patient has hemoconcentration however she has had this in the past. CMP shows hyperglycemia with a glucose of 252. Patient has no diagnosis of diabetes. She has no anion gap. No JERROD. Patient does have some mild transaminitis with an AST of 47 and an ALT of 46. No hyperbilirubinemia. Patient has had her gallbladder removed. Troponin unremarkable. Lipase unremarkable. UA negative for UTI but positive for glucose. Will obtain hemoglobin A1c for concern of diabetes. A1c elevated at 9.6. Patient has diabetes. CT abdomen pelvis shows hepatomegaly and diffuse fatty infiltration of the liver. Borderline splenomegaly. Minimal anterior listhesis of L5 on S1 due to spondylolysis of the pars interarticularis of the L5 vertebrae. Patient not endorsing any low back pain. On reevaluation, patient states her pain has improved. She was updated of all of her results and the findings. Patient needs to follow-up with GI as well as PCP for elevated liver enzymes and CT abdomen pelvis results of hepatomegaly and diffuse fatty infiltration of the liver with borderline splenomegaly. She was also educated that she needs to follow-up with PCP for new onset diabetes. Will place her on low-dose of metformin until seen by PCP. Return precautions explained. She confirmed understand the plan. Patient stable to discharge home EKG: Interpreted by me/EM physician: EKG shows normal sinus rhythm with a heart rate 78. No acute ischemic changes. Diagnostic: Interpreted by me/EM physician: Chest x-ray without pneumonia, effusion, cardiomegaly, pneumothorax Impression: 1. Abdominal pain 2. Nausea and diarrhea 3. New diagnosis of diabetes 4. Transaminitis with hepatomegaly and diffuse fatty infiltration of the liver Lab Data Labs: Laboratory Results - last 24 hr 08/14/24 08/14/24 09:17 11:35 WBC 10.2 RBC 5.44 H Hgb 16.5 H Hct 46.7 MCV 85.8 MCH 30.3 MCHC 35.3 RDW Std Deviation 37.7 RDW Coeff of Carey 12.1 Plt Count 257 MPV 9.4 Immature Gran % (Auto) 0.600 Neut % (Auto) 72.3 H Lymph % (Auto) 22.5 Yates % (Auto) 3.4 Eos % (Auto) 0.4 Baso % (Auto) 0.8 Absolute Neuts (auto) 7.4 Absolute Lymphs (auto) 2.29 Nucleated RBC % 0 Sodium 133 Potassium 4.0 Chloride 99 Carbon Dioxide 20.5 L Anion Gap 14 BUN 9 Creatinine 0.63 L Estim Creat Clear Calc 121.94 Est GFR (MDRD) Non-Af 111 BUN/Creatinine Ratio 14.0 Glucose 252 H Hemoglobin A1c 9.6 Lactic Acid 2.0 Calcium 9.3 Total Bilirubin 0.85 AST 47 H ALT 46 H Alkaline Phosphatase 93 Troponin T High Sens < 6 Troponin T Hi Sens 2 Hr < 6 Total Protein 7.4 Albumin 4.2 Globulin 3.2 Albumin/Globulin Ratio 1.3 Lipase 12 L Urine Color Yellow Urine Clarity Sl. Cloudy Urine pH 6.5 Ur Specific [place] 1.015 Urine Protein 30 H Urine Glucose (UA) 1000 H Urine Ketones Negative Urine Occult Blood Negative Urine Nitrite Negative Urine Bilirubin Negative Urine Urobilinogen Normal Ur Leukocyte Esterase Negative Urine RBC 0 SEEN Urine WBC 0 SEEN Ur Squamous Epith Cells 0-5 SEEN Urine Bacteria 0 SEEN Urine Mucus 0 SEEN Radiography Diagnostic Testing: Clinical Impression(s) from Imaging Studies Abdomen/Pelvis CT 08/14/24 09:14 IMPRESSION: Hepatomegaly and diffuse fatty infiltration of the liver. Borderline splenomegaly. Minimal anterior listhesis of L5 on S1 due to spondylolysis of the pars interarticularis of the L5 vertebrae. Reading Location: [facility] Chest X-Ray 08/14/24 09:55 IMPRESSION: No visible acute cardiopulmonary findings Reading Location: [id number] Discharge Plan Triage Chief Complaint: Abd Pain ED Provider: Dre Kapadia Dx/Rx/DC Orders Clinical Impression: Abdominal pain, Diabetes Instructions: Diabetes: Newly Diagnosed, ED Abdominal Pain Unkn Cause Fem Prescriptions: New metformin 850 mg tablet 850 mg PO DAILY 30 Days Qty: 30 0RF Primary Care Provider: Care Physician,No Primary Referrals: Oscar Garibay MD [Med Staff - Active Staff] - As soon as possible Friend,DO Hussein [Med Staff - Active Staff] - 3-5 Days Activity Restrictions/Additional Instructions: You need to follow-up with the PCP provided above or your own PCP for new diagnosis of diabetes as well as elevated liver enzymes with CT abdomen pelvis showing enlarged and fatty liver. Follow-up with GI for this symptom as well. Return back to the ED if symptoms change or worsen. Print Language: Faroese Disposition Disposition: Home, Self Care Discharge Date/Time: 08/14/24 13:29
[2024-08-14 09:54] LABS: Squamous Epithelial Cells - UA 0-5 SEEN /hpf (5-10)
[2024-08-14 09:55] LABS: Red Blood Cells-Urine 0 SEEN /hpf (0-5)
--- NOTE | 2024-08-14 09:55 | RAD_ITS ---
PROCEDURE: CHEST 1 VIEW (PORTABLE) (RADCXPA_P), 08/14/2024 REASON FOR EXAM: RUQ ABDOMINA PAIN TECHNIQUE: A single portable AP view of the chest was obtained. COMPARISON: 07/19/2024 FINDINGS: Heart: Unremarkable. Mediastinum: Unremarkable. Lungs/pleura: No focal consolidation. No sizeable pleural effusion or visible pneumothorax. Bones: Unremarkable. Lines and support devices: None. RAD/Chest 1 View (Portable) IMPRESSION: No visible acute cardiopulmonary findings Reading Location: [id number]
[2024-08-14 10:03] LABS: ALB/GLOB Ratio 1.3 RATIO (0.9-2.4); AST(SGOT) 47 U/L (<=31); Alanine Aminotransfer ALT/SGPT 46 U/L (<=34); Albumin, Serum 4.2 g/dL (3.5-5.0); Alkaline Phosphatase 93 U/L (35-104); Anion Gap 14 (5-15); BUN 9 mg/dL (4-19); Calcium,Total 9.3 mg/dL (7.6-11.0); Carbon Dioxide 20.5 mmol/L (21.0-32.0); Chloride 99 mmol/L (98-108); Creatinine, Serum 0.63 mg/dL (0.70-1.20); EST Glomerular Filtration Rate 111 (>60); Estimated Creatinine Clearance 121.94 ml/min (50-250); Globulin 3.2 g/dL (2.2-4.2); Glucose 252 mg/dL (70-99); Lipase 12 U/L (13-75); Protein, Total 7.4 g/dL (5.9-8.4); Sodium Level 133 mmol/L (133-145); Total Bilirubin 0.85 mg/dL (0.00-1.30); Troponin T High Sensitivity < 6 ng/L (<=14)
[2024-08-14 11:35] LABS: Hemoglobin A1c 9.6 % (<=5.6)
[2024-08-14 12:19] LABS: Troponin T High Sens 2 HR < 6 ng/L (<=14)
[2024-08-14 12:27] VITALS: BP 110/76; PULSE 74; RESP 18; O2SAT 98
[2024-08-14 12:40] VITALS: BP 155/87; PULSE 70; O2SAT 98
== END 2024-08-14 13:29 | disposition home or self-care (01) ==
PROVIDERS: Emergency Provider Surgery; Visit Provider Surgery
DX: R10.11 Right upper quadrant pain (principal); K50.90 Crohn's disease, unspecified, without complications; E11.9 Type 2 diabetes mellitus without complications; R11.0 Nausea; R19.7 Diarrhea, unspecified; R16.0 Hepatomegaly, not elsewhere classified; R74.8 Abnormal levels of other serum enzymes; K76.0 Fatty (change of) liver, not elsewhere classified; F17.210 Nicotine dependence, cigarettes, uncomplicated; M47.816 Spondylosis without myelopathy or radiculopathy, lumbar region; Z88.0 Allergy status to penicillin; Z88.2 Allergy status to sulfonamides; Z88.1 Allergy status to other antibiotic agents; Z90.49 Acquired absence of other specified parts of digestive tract; Z91.199 Patient's noncompliance with other medical treatment and regimen due to unspecified reason; Z87.442 Personal history of urinary calculi
CPT/HCPCS: 71045; 74177; 80053; 81001; 83036; 83605; 83690; 84484; 85025; 93005; 96361; 96374; 99283; Q9967; A4216; J2405

== ENCOUNTER 2024-08-16 09:12 | Emergency (ER) | payer MEDICAID, SELFPAY ==
[2024-08-16 09:13] VITALS: BP 183/98; PULSE 87; RESP 16; TEMP 36.7; O2SAT 100; BMI 31.0
--- NOTE | 2024-08-16 09:26 | EX.ED.DYSGE1 ---
HPI History of Present Illness Chief Complaint: General Illness Informant: patient Narrative Narrative: Patient was seen here 2 days ago for similar symptoms, she has persistent right upper quadrant abdominal pain that is probably been there for about 5 days now, along with diarrhea that she feels like is worse over the past day or 2, was watery admixed with loose stool but now it is just water, no blood or melena. Also she is nauseated and vomiting, just yellow stomach acid per the patient, no coffee-ground emesis or hematemesis. She has discomfort in her upper back between her shoulder blades since vomiting as well. No dyspnea or chest discomfort or. No subjective fevers. She states still has urinary frequency, recently diagnosed with diabetes and started metformin she is not sure if the metformin is disagreeing with her or if this is something else. She has a history of Crohn's and has chronic diarrhea, but states this is acutely worse. She has drank a lot of water yesterday and kept most of the down still urinating frequently without dysuria or hematuria, her blood sugars have been high and that is not new. [facility] Medical History Crohn's disease GERD (gastroesophageal reflux disease) Home Medications ?Medication ?Instructions ?Recorded ?Last Taken ?Type metformin 850 mg tablet 850 mg PO DAILY 30 days #30 tabs 08/14/24 Unknown Rx dicyclomine 20 mg tablet 20 mg PO Q6H PRN PRN abdominal 08/16/24 Unknown Rx discomfort #20 tabs metoclopramide HCl 10 mg tablet 10 mg PO Q6H PRN nausea and 08/16/24 Unknown Rx vomiting #20 tabs Allergy/AdvReac Type Severity Reaction Status Date / Time Penicillins (PCN) Allergy Other Verified 08/16/24 09:19 Sulfa (Sulfonamide Allergy Other Verified 08/16/24 09:19 Antibiotics) cephalexin monohydrate (From AdvReac Other Verified 08/16/24 09:19 Keflex) codeine AdvReac Other Verified 08/16/24 09:19 Surgical History Hx of oral surgery Hx of section H/O: hysterectomy Social History (Updated 08/16/24 @ 09:[address] Severiano Burnette MD) Smoking Status: Current every day smoker tobacco type: cigarettes alcohol intake: former details: No current use ROS ROS ED Constitutional Constitutional ED: Denies chills or fever(s) Eyes Eyes: Denies change in vision or diplopia ENT ENT ED: Denies rhinorrhea or sore throat Cardiovascular Cardiovascular: Denies chest pain or palpitations Respiratory/Chest Respiratory/Chest: Denies cough or dyspnea Gastrointestinal Gastrointestinal: Reports abdominal pain, diarrhea, nausea and vomiting; Denies hematemesis, hematochezia or melena Genitourinary Genitourinary ED: Reports urinary frequency; Denies dysuria or hematuria Musculoskeletal Musculoskeletal: Reports back pain; Denies neck pain Integumentary Denies abscess or rash Neurologic Neurologic: Denies headache(s), paresthesias or weakness Psychiatric Psychiatric: Denies anxiety or suicidal thoughts EXAM Physical Exam Const Vital Signs: 08/16/24 09:13 08/16/24 09:19 Temperature 98.1 F Temperature Source Temporal Pulse Rate 87 Respiratory Rate 16 Respiratory Effort Normal Respiratory Pattern Normal Blood Pressure 183/98 H Blood Pressure Mean 126 Pulse Ox 100 Oxygen Delivery Method Room Air Positive well nourished and well developed General Appearance ED: well developed and NAD HEENT Reports moist mucous membranes normocephalic and atraumatic Eyes PERRL and EOMs intact bilaterally Neck full ROM and supple Resp normal respiratory effort and clear to auscultation bilaterally Cardio regular rate, regular rhythm and no murmurs GI non-distended GI Narrative: Mild right upper quadrant tenderness, otherwise benign abdomen Auscultation: hyperactive bowel sounds Palpation: soft Back/Spine no CVA tenderness General Back: other FROM Extremity normal to inspection General Extremety ED: Negative for edema, pulses abnormal or tenderness General Extremity: Negative for edema or pulses abnormal Neuro oriented x3, CN's II-XII intact bilaterally and no sensory deficits noted Sensorium / Orientation: awake and alert Motor Exam: strength 5/5 throughout Psych Mood & Affect: anxious Skin no rashes or lesions noted and no wounds MDM MDM MDM Narrative Medical decision making narrative: Patient labs, urinalysis, CT couple days ago all of which was unremarkable except for hyperglycemia. I think reasonable to repeat the labs and evaluate for metabolic disturbance or electrolyte disorder, rule out biliary obstruction/pancreatitis while given her fluids, medicines for what I suspect is bowel-related pain, and nausea. She feels better after all of this. Her labs are unchanged.. I discussed prescribing her dicyclomine and Reglan to use until she follows up, she is comfortable with that, we also discussed treating possible Crohn's-related inflammation with a burst of prednisone, but she refuses and does not want to be on that at all. She has an appointment with GI as well. Advised to follow-up. I would continue the metformin for now. No indication for repeat advanced imaging, patient in agreement. History & Record Review Additional record(s) reviewed:: Prior ED visit Lab Data Attestation: I reviewed the patient's lab results. Labs: Laboratory Results - last 24 hr 08/16/24 08/16/24 09:37 09:48 WBC 8.5 RBC 5.36 Hgb 16.5 H Hct 45.7 MCV 85.3 MCH 30.8 MCHC 36.1 H RDW Std Deviation 37.3 RDW Coeff of Carey 12.0 Plt Count 253 MPV 9.6 Immature Gran % (Auto) 0.500 Neut % (Auto) 65.9 Lymph % (Auto) 27.4 Kings % (Auto) 4.5 Eos % (Auto) 0.8 Baso % (Auto) 0.9 Absolute Neuts (auto) 5.6 Absolute Lymphs (auto) 2.33 Nucleated RBC % 0 Sodium 135 Potassium 3.9 Chloride 99 Carbon Dioxide 23.3 Anion Gap 13 BUN 8 Creatinine 0.62 L Estim Creat Clear Calc 110.14 Est GFR (MDRD) Non-Af 112 BUN/Creatinine Ratio 12.1 Glucose 226 H Calcium 9.6 Total Bilirubin 0.61 AST 40 H ALT 49 H Alkaline Phosphatase 97 Total Protein 7.8 Albumin 4.6 Globulin 3.2 Albumin/Globulin Ratio 1.4 Lipase 18 POC Glucose 235 H Discharge Plan Triage Chief Complaint: General Illness ED Provider: Severiano Burnette Dx/Rx/DC Orders Clinical Impression: Right upper quadrant abdominal pain, Hyperglycemia due to type 2 diabetes mellitus, Acute diarrhea Instructions: Abdominal Pain Prescriptions: New dicyclomine 20 mg tablet 20 mg PO Q6H PRN PRN (Reason: abdominal discomfort) Qty: 20 0RF metoclopramide HCl 10 mg tablet 10 mg PO Q6H PRN (Reason: nausea and vomiting) Qty: 20 0RF Continued metformin 850 mg tablet 850 mg PO DAILY 30 Days Qty: 30 0RF Primary Care Provider: Helen Parra Referrals: Helen Parra MD [Primary Care Provider] - Keep Nell appointment Activity Restrictions/Additional Instructions: It is possible that the metformin is related to your diarrhea, but until you can follow-up with primary care, this is the safest diabetes medicine for you to be on to keep your sugars from going too high right now. Therefore we recommend continuing it as prescribed. Print Language: Greek Disposition Disposition: Home, Self Care
[2024-08-16 09:43] LABS: Absolute Lymphocyte Count 2.33 X10^3/uL (0.83-4.51); Absolute Neutrophil Count 5.6 X10^3/uL (2.0-7.7); Basophil# 0.08 X10^3/uL; Basophil% 0.9 % (0-1); Eosinophil# 0.07 X10^3/uL; Eosinophils% 0.8 % (0-5); Hematocrit 45.7 % (37-47); Hemoglobin 16.5 g/dL (12.0-15.0); Lymphocyte # 2.33 X10^3/ul (0.83-4.51); Lymphocyte % 27.4 % (19-41); Mean Corp Hgb Conc 36.1 g/dL (32-36); Mean Corpuscular Hgb 30.8 pg (27.0-32.0); Mean Corpuscular Volume 85.3 fL (81-99); Mean Platelet Vol. 9.6 fl (6.2-12.0); Monocyte# 0.38 X10^3/uL; Monocyte% 4.5 % (0-10); NRBC Flagged by Analyzer 0 % (0-5); Neutrophil # 5.61 X10^3/uL (2.7-7.7); Neutrophil % 65.9 % (47-70); Platelet Count 253 K/mm3 (150-450); RBC Distribution Width SD 37.3 fl (35.1-43.9); Red Blood Count 5.36 M/mm3 (4.2-5.4); White Blood Count 8.5 K/mm3 (4.4-11.0)
[2024-08-16] MEDS: Dicyclomine 10 MG Capsule 20 MG PO (09:50)
[2024-08-16] MEDS: Ondansetron 4 MG/2 ML Vial IV (09:50)
[2024-08-16] MEDS: Mag Hydrox/Al Hydrox/Simeth 30 ML UDC PO (09:51)
[2024-08-16] MEDS: Lidocaine 2% Viscous15 ML UDC 15 ML PO (09:51)
[2024-08-16] MEDS: Pantoprazole Sodium 40 MG Tablet PO (09:51)
[2024-08-16] MEDS: 0.9% Normal Saline (500mL Bag) 500 ML 999 ML IV (09:53)
[2024-08-16 10:16] LABS: Bedside Glucose 235 mg/dL (74-106)
[2024-08-16 10:18] LABS: ALB/GLOB Ratio 1.4 RATIO (0.9-2.4); AST(SGOT) 40 U/L (<=31); Alanine Aminotransfer ALT/SGPT 49 U/L (<=34); Albumin, Serum 4.6 g/dL (3.5-5.0); Alkaline Phosphatase 97 U/L (35-104); Anion Gap 13 (5-15); BUN 8 mg/dL (4-19); BUN/Creat Ratio 12.1 RATIO (10-20); Calcium,Total 9.6 mg/dL (7.6-11.0); Carbon Dioxide 23.3 mmol/L (21.0-32.0); Chloride 99 mmol/L (98-108); Creatinine, Serum 0.62 mg/dL (0.70-1.20); EST Glomerular Filtration Rate 112 (>60); Estimated Creatinine Clearance 110.14 ml/min (50-250); Globulin 3.2 g/dL (2.2-4.2); Glucose 226 mg/dL (70-99); Lipase 18 U/L (13-75); Potassium 3.9 mmol/L (3.3-5.1); Protein, Total 7.8 g/dL (5.9-8.4); Sodium Level 135 mmol/L (133-145); Total Bilirubin 0.61 mg/dL (0.00-1.30)
== END 2024-08-16 15:11 | disposition home or self-care (01) ==
PROVIDERS: Emergency Provider Emergency Medicine; PCP Internal Medicine; Visit Provider Emergency Medicine
DX: R10.11 Right upper quadrant pain (principal); K50.90 Crohn's disease, unspecified, without complications; E11.65 Type 2 diabetes mellitus with hyperglycemia; R19.7 Diarrhea, unspecified; F17.210 Nicotine dependence, cigarettes, uncomplicated; Z88.0 Allergy status to penicillin; Z88.2 Allergy status to sulfonamides; Z88.1 Allergy status to other antibiotic agents; Z79.84 Long term (current) use of oral hypoglycemic drugs
CPT/HCPCS: 80053; 82962; 83690; 85025; 96361; 96374; 99283; A4216; J2405

== ENCOUNTER → 2024-08-29 | Outpatient (CLI) | payer MEDICAID, SELFPAY ==
[2024-08-29 11:45] LABS: ALB/GLOB Ratio 1.3 RATIO (0.9-2.4); AST(SGOT) 29 U/L (<=31); Alanine Aminotransfer ALT/SGPT 40 U/L (<=34); Albumin, Serum 4.6 g/dL (3.5-5.0); Alkaline Phosphatase 94 U/L (35-104); Anion Gap 13 (5-15); BUN 11 mg/dL (4-19); BUN/Creat Ratio 17.2 RATIO (10-20); CPK Total, Creatine Kinase 35 U/L (24-195); Calcium,Total 9.9 mg/dL (7.6-11.0); Carbon Dioxide 21.6 mmol/L (21.0-32.0); Chloride 101 mmol/L (98-108); Creatinine, Serum 0.63 mg/dL (0.70-1.20); EST Glomerular Filtration Rate 111 (>60); Ferritin 197 ng/mL (22-378); Globulin 3.6 g/dL (2.2-4.2); Glucose 246 mg/dL (70-99); Potassium 4.2 mmol/L (3.3-5.1); Protein, Total 8.2 g/dL (5.9-8.4); Sodium Level 135 mmol/L (133-145); Total Bilirubin 0.57 mg/dL (0.00-1.30)
[2024-08-29 15:10] LABS: CRP 5.05 mg/L (0.0-3.0); LDH 156 U/L (84-246); Lipase 30 U/L (13-75)
== END | disposition home or self-care (01) ==
LOC: LAB 09:43
PROVIDERS: PCP Internal Medicine
DX: R19.7 Diarrhea, unspecified (principal); R10.11 Right upper quadrant pain; K76.0 Fatty (change of) liver, not elsewhere classified
CPT/HCPCS: 36415; 80053; 82550; 82728; 82784; 82785; 83516; 83615; 83690; 86003; 86005; 86037; 86140; 86255

== ENCOUNTER → 2024-09-03 | Outpatient (CLI) | payer MEDICAID, SELFPAY ==
[2024-09-04 15:08] LABS: Pancreatic Elastase, Fecal > 800 (>200)
[2024-09-04 16:09] LABS: Calprotectin, Stool 88 ug/g (0-120)
== END | disposition home or self-care (01) ==
LOC: LABSPEC 08:02
PROVIDERS: PCP Internal Medicine
DX: R19.7 Diarrhea, unspecified (principal); R10.11 Right upper quadrant pain
CPT/HCPCS: 82653; 83993

== ENCOUNTER → 2024-09-06 | Outpatient (CLI) | payer MEDICAID, SELFPAY ==
--- NOTE | 2024-09-06 08:11 | US_ITS ---
PROCEDURE: ULTRASOUND ABDOMEN LIMITED WITH ELASTOGRAPHY REASON FOR EXAM: FATTY LIVER ON CT HISTORY OF CROHN'S DISEASE. DIARRHEA NAUSEA. UPPER ABDOMINAL PAIN. COMPARISON: CT ABDOMEN AND PELVIS DATED 08/14/2024. TECHNIQUE: Right upper quadrant abdominal ultrasound was performed along with ElastQ Imaging shear wave elastography for non-invasive assessment of liver tissue stiffness. FINDINGS: LIVER: Size: Enlarged. Length: 19.6 cm Echotexture: Hyperechoic. Heterogeneous texture. Contour: Normal Lesions: None identified Elastography: EQI Med: 8.4 kPa EQI Med Bandar: 1.67 m/s GALLBLADDER: Surgically absent. COMMON BILE DUCT: 0.67 cm in diameter. . PANCREAS: Unremarkable. Right kidney: Size measures 12.2 x 6.5 x 4.8 cm. Cortex measures 1.1 cm. US/ABD Limited w/ Elastography IMPRESSION: 1. Findings indicate moderate to severe, F 2 to F 3, likelihood of clinically significant hepatic fibrosis. 2. Steatosis. 3. Hepatomegaly. 4. Status post cholecystectomy. Reference Values: SRU <1.37 m/s (5.7kPa): No to mild fibrosis 1.37 m/s - 2.2 m/s: Moderate to severe fibrosis >2.2 m/s (15kPa): Significant fibrosis / cirrhosis METAVIR Score F2 or higher: 1.34 m/s (5.7kPa) F3 or higher: 1.55 m/s (7.3kPa) F4: 1.80 m/s (10kPa) * If the IQR/Med is >30%, the variance in the measurements is a large and the a ccuracy of the measurement may be in question. Reading Location: [place] [id number]
== END | disposition home or self-care (01) ==
PROVIDERS: PCP Internal Medicine
DX: R19.7 Diarrhea, unspecified (principal); R10.11 Right upper quadrant pain
CPT/HCPCS: 76705; 76981

== ENCOUNTER → 2024-09-12 | Outpatient (CLI) | payer MEDICAID, SELFPAY ==
[2024-09-13 05:07] LABS: HEPATITIS B SURFACE AG Negative (Negative); Hep C Antibodies Non Reactive (Non Reactive); Hepatitis A IgM Antibody Negative (Negative); Hepatitis B Core AB IgM Negative (Negative)
== END | disposition home or self-care (01) ==
LOC: LAB 10:25
PROVIDERS: PCP Internal Medicine
DX: K74.00 Hepatic fibrosis, unspecified (principal); K76.0 Fatty (change of) liver, not elsewhere classified
CPT/HCPCS: 36415; 80074

== ENCOUNTER 2024-09-17 16:37 | Emergency (ER) | payer MEDICAID, SELFPAY ==
[2024-09-17 16:38] VITALS: BP 151/100; PULSE 97; RESP 16; TEMP 36; O2SAT 99; BMI 29.8
--- NOTE | 2024-09-17 17:44 | ED.RN ---
PT STATES I NEED TO GO GET MY WATER BOTTLE IN THE CAR THIS RN INFORMS PATIENT THAT SHE IS NOT ABLE TO LEAVE THE DEPARTMENT WHILE WAITING TO BE SEEN. PT STATES WELL IF THAT'S THE CASE, I'M OUT IM JUST GOING TO LEAVE PT PROCEEDS TO EXIT THE DEPARTMENT.
== END 2024-09-17 17:42 | disposition left against medical advice (07) ==
LOC: ED 17:47
PROVIDERS: PCP Internal Medicine
DX: Z53.21 Procedure and treatment not carried out due to patient leaving prior to being seen by health care provider (principal)

== ENCOUNTER → 2024-09-17 | Outpatient (CLI) | payer MEDICAID, SELFPAY ==
[2024-09-17 07:56] LABS: Bacteria 0 SEEN /hpf (None Seen); Mucous, Urine 0 SEEN /hpf (<or=2+); Red Blood Cells-Urine 0 SEEN /hpf (0-5)
[2024-09-17 09:35] LABS: Color, Urine Yellow (Yellow); Glucose, Dipstick 1000 mg/dl (Normal); Ketone-Dipstick 50 mg/dl (Negative); Leukocyte Esterase-Dipstick Negative /ul (Negative); Nitrite-Dipstick Negative (Negative); Occult Blood-Urine 10 /ul (Negative); Protein-Dipstick 30 mg/dl (Negative); Urine Bilirubin Dipstick Negative (Negative); Urine Clarity Cloudy (Clear); Urine Urobilinogen Normal (Normal)
[2024-09-17 09:51] LABS: Amorphous Sediment 3+ URATE; Squamous Epithelial Cells - UA 0-5 SEEN /hpf (5-10); White Blood Cells 0-5 SEEN /hpf (0-5)
[2024-09-18 14:08] LABS: Giardia Lamblia, Stool EIA Negative (Negative)
== END | disposition home or self-care (01) ==
LOC: LABSPEC 07:53
PROVIDERS: PCP Internal Medicine
DX: R19.7 Diarrhea, unspecified (principal); K74.00 Hepatic fibrosis, unspecified
CPT/HCPCS: 81001; 87329; 87506